=== PATIENT | female | born 1930 | race Caucasian/White ===

== ENCOUNTER 2016-09-18 10:09 | Observation (INO) | payer OTHER ==
[~2016-09-18] VITALS: Ht 149.9 cm; Wt 56.4 kg
[2016-09-18 10:54] LABS: HEMATOCRIT 43.9 % (36.0-46.0); MCH 30.5 PG (29.0-34.0); MCHC 33.7 G/DL (30.0-36.0); MCV 90.5 FL (83-99); PLATELET COUNT 162 K/uL (156-360); RBC DIS.WIDTH-CV 12.3 % (11.8-14.6); RBC DIS.WIDTH-SD 40.5 % (39-53); RED BLOOD COUNT 4.85 M/uL (3.80-5.20); WHITE BLOOD COUNT 6.3 K/uL (4.1-10.2)
[2016-09-18 11:03] LABS: CHLORIDE 108 mEq/L (99-109); POTASSIUM 4.4 mEq/L (3.7-5.4); SODIUM 142 mEq/L (136-147)
[2016-09-18 11:05] LABS: GLUCOSE 97 mg/dL (70-99)
[2016-09-18 11:06] LABS: ANION GAP 10 MEQ/L (2-14)
[2016-09-18 11:09] LABS: GFR ESTIMATE (CALCULATED) > 59 mL/min/
[2016-09-18 11:10] LABS: UREA NITROGEN (BUN) 16 mg/dL (9-23)
[2016-09-18 11:15] LABS: TROP-I INTERPRETATION NEGATIVE; TROPONIN-I < 0.01 ng/mL (0.0-0.30)
[2016-09-18] MEDS ORDERED: CALCITONIN-SAL3.8 ML ALT NARES (11:54)
[2016-09-18] MEDS ORDERED: VALSARTAN160 MG PO (11:55)
[2016-09-18] MEDS ORDERED: CENTRUM SILVER1 EAC3 PO (11:55)
[2016-09-18] MEDS ORDERED: BEPREVE10 ML BOTH EYES (11:55)
[2016-09-18] MEDS ORDERED: SIMVASTATIN20 MG PO (11:55)
[2016-09-18] MEDS ORDERED: CAL-GEST500 MG PO (11:56)
[2016-09-18] MEDS ORDERED: CRANBERRY450 M1 PO (11:56)
[2016-09-18] MEDS ORDERED: MOVE FREE ULTR1 EAC1 PO (11:57)
[2016-09-18] MEDS ORDERED: POTASSIUM GLUCO2 MEQ PO (11:57)
[2016-09-18] MEDS ORDERED: VITAMIN D35000 UNIT PO (11:57)
[2016-09-18 14:25] VITALS: BP 167/97
[2016-09-18 15:35] VITALS: BP 144/93
[2016-09-18 17:39] LABS: TROP-I INTERPRETATION NEGATIVE; TROPONIN-I < 0.01 ng/mL (0.0-0.30)
[2016-09-18 20:00] VITALS: BP 144/75
[2016-09-18 23:34] LABS: TROP-I INTERPRETATION NEGATIVE; TROPONIN-I < 0.01 ng/mL (0.0-0.30)
[2016-09-18 23:52] VITALS: BP 141/83
[2016-09-19 04:05] VITALS: BP 131/77
[2016-09-19 07:14] VITALS: BP 147/83
[2016-09-19] MEDS ORDERED: ASPIR 8181 M1 PO (10:40)
== END 2016-09-19 13:51 | disposition home or self-care (01) ==
LOC: EME 10:09 → 5WEST 12:28 → EDOF 12:28 → 5WEST 14:20
PROVIDERS: Nurse Practitioner Adult Health
DX: R07.89 Other chest pain (principal); I10 Essential (primary) hypertension; E78.5 Hyperlipidemia, unspecified
CPT/HCPCS: 71020; 80048; 84484; 85027; 93005; 93306; 99281; 99285; G0378; J1650; S0028